=== PATIENT | female | born 1980 | race Caucasian/White ===

== ENCOUNTER 2021-05-28 10:00 | Emergency (ER) | payer OTHER ==
[~2021-05-28] VITALS: Ht 165.1 cm; Wt 81.7 kg
[2021-05-28] MEDS ORDERED: BIRTH CONTROL (10:28)
[2021-05-28] MEDS ORDERED: ANXIETY MED (10:29)
[2021-05-28] MEDS ORDERED: DEXAMETHASONE 44 M1 PO (11:42)
[2021-05-28] MEDS ORDERED: PROMETH-CODEIN 65 ML PO (11:42)
[2021-05-28] MEDS ORDERED: ZPAK PO (11:42)
[2021-05-28 12:28] VITALS: BP 145/88
== END 2021-05-28 12:28 | disposition home or self-care (01) ==
LOC: M.ERS 10:00
DX: U07.1 COVID-19 (principal); Z79.899 Other long term (current) drug therapy